=== PATIENT | male | born 1945 | race Caucasian/White ===

== ENCOUNTER → 2017-08-16 | Outpatient (CLI) | payer OTHER ==
--- NOTE | 2017-08-16 12:23 | DIAGNOSTIC IMAGING REPORT ---
VIDEO SWALLOW HISTORY: SWALLOWING DYSFUNCTION TECHNIQUE: Video fluoroscopic evaluation of swallowing was performed in the AP and lateral projections by the speech pathology staff. The patient is fed nectar-thick and thin liquid barium, a barium coated wafer, and barium pudding. FLUOROSCOPY TIME: 2.4 minutes. COMPARISON STUDY: Outside hospital video swallow 05/07/2017. FINDINGS: There is normal hyoid excursion with incomplete epiglottic deflection on a few of the swallows. There is associated aspiration with the thin liquid barium. No aspiration identified with the nectar thick liquid barium, barium pudding, barium coated cracker. IMPRESSION: 1. Aspiration with the thin liquid barium only. 2. Please see the speech pathologist report for detailed findings and recommendations. Electronically signed by: Yoseph Oliveros M.D. 08/16/2017 12:22 PM Dictated Date/Time: 08/16/2017 12:20 PM
--- NOTE | 2017-08-16 15:39 | SWALLOWING EVALUATION ---
REFERRING SPEECH PATHOLOGIST: Elisa Rutherford MS, CCC-[facility]/L HISTORY: This 72 year-old male was referred for a VFSS at [facility] in order to identify safe consistencies for optimal oral intake. The patient has a PMH significant for intellectual disability, CVA (2016), acoustic neuroma, and (R)-sided weakness. The patient had a VFSS at [facility] in April of 2017. It resulted with recommendations for pureed diet and honey-thick liquids and outpatient [facility] f/u. Currently, the patient does trials of pureed items and nectar-thick liquids with the referring [facility] during therapeutic intervention. He was using a Safe Straw, but did not like it and switched to using a reduced flow sippy cup (RFSC). This study is to determine progress from therapy and to determine the safety of using the RFSC at different levels of restriction with different consistencies of liquids. PROCEDURE: The patient was seen in the Radiology Department of [facility] for the VFSS. Cursory examination of the oral cavity revealed adequate dentition. Movement of the articulators was impaired as evidenced by dysarthria and minimal verbalization. The patient was seated upright in his wheelchair and was viewed in the lateral plane. All liquids were presented using the RFSC. It was either in its most restrictive position (1), or in the position that was one notch less restrictive (2). The patient self-presented all boluses. In the lateral plane, the patient was given: thin liquid barium in position (1) x 3, thin liquid barium in position (2) x 1, nectar thick liquid barium in position (1) x 1, nectar thick liquid barium in position (2) x 1, pudding via teaspoon, and cracker with barium pudding. RESULTS: Oral Stage: Interlabial bolus loss progressing to the hannah border. Delayed mastication with complete bolus recollection. Delayed initiation of lingual motion for bolus transfer, but once it began all movement of the cohesive bolus was posterior. Contrast diffusely lined oral cavity after the swallow. Latent pharyngeal swallow initiation occurring when the bolus had filled the pyriform sinuses. Mild-moderate oral-stage dysfunction. Pharyngeal Stage: No bolus between soft palate and pharyngeal wall. Laryngeal elevation was complete. Anterior hyoid excursion was partial. Epiglottic inversion complete. Laryngeal vestibular closure incomplete. Pharyngeal stripping wave present. Adequate distention and duration of PES opening. Narrow column of contrast between tongue base and pharyngeal wall indicating incomplete tongue base retraction. Small collections of contrast in the valleculae and pyriform sinuses after the swallow that minimized with a dry swallow. There was scott aspiration of thin liquid taken from the RFSC in position (2); however there was no other aspiration during this study. The patient's delayed swallow initiation is the primary contributor to the aspiration. In position (2) there is too much thin liquid completely filling the pharynx prior to initiation of any elevation, excursion or epiglottic inversion so it flows into the airway without impedance. The smaller amount of liquid released from position (1) also reached the pharynx prior to swallow initiation, but because it was a smaller amount it did not overflow into the airway. The patient did intermittently go into neck extension during the swallow, but this did not seem to affect the safety of the swallow as much as the delay in the initiation of the pharyngeal stage. SUMMARY/RECOMMENDATIONS: This patient presents with mild-moderate oral-pharyngeal dysphagia. The following is recommended: 1. Moist mechanical soft with EITHER thin liquids from the RFSC in position (1) -or- nectar-thick liquids from the RFSC in position (2). 2. Aspiration precautions: cup settings as listed above, fully upright, encourage patient to feed himself, monitor rate of intake carefully 3. Consideration of further f/u with outpatient [facility] services as treating therapist indicates. A summary of the results and recommendations was discussed with the patient and his primary caregiver from the [facility] immediately following the study. They verbalized understanding. A brief summary was also recorded on the consultation record provided by the [facility]. Thank you for referral of this patient. Please contact me at if any additional information is needed.
== END | disposition home or self-care (01) ==
LOC: C.RAD 10:09
PROVIDERS: ATTEND Internal Medicine Infectious Disease
DX: R13.12 Dysphagia, oropharyngeal phase (principal)